=== PATIENT | female | born 1990 | race Caucasian/White ===

== ENCOUNTER 2023-05-18 13:07 | Outpatient (CLI) | payer OTHER ==
--- NOTE | 2023-05-18 13:48 | Sleep Patient Instructions ---
Sleep Center Visit Summary - Patient Visit Information Reason for Visit: Initial consult for evaluation of sleep disordered breathing and other sleep issues. - Patient Instructions Instructions Attached: Sleep Study Home Monitor Additional Instructions: You will be completing a sleep study, either an in-lab polysomnography (PSG) or home sleep study (HST). You will follow-up in the sleep care office after the sleep study is completed to hear the results and talk about therapy, if needed. You will be called by our office staff to schedule this appointment, but you may contact us with any questions. - Clinic Information Contact: [facility] [address] [place] [address] [email or web address] T: [phone]
--- NOTE | 2023-05-18 13:51 | SLEEP CARE CONSULTATION ---
Information from patient questionnaire entered by Srikanth Carr. I have reviewed and concur with the information entered by Srikanth Carr. This document represents the service I personally performed and the decisions made by me, Nikky Merida ARNP. History of Present Illness Service Date and Time: 05/18/2023 1307 Reason for Visit: New patient Chief Complaint: reports: Unrefreshed sleep, Snoring, Observed pauses in breathing, Frequent awakenings at night Date of Onset: 12+MONTHS Usual bedtime: 10PM-12AM Time it takes to fall asleep: 10MIN-2HRS (mostly about 30 mins) Snores at night: Yes Observed to quit breathing while asleep: Yes Sleeps alone due to snoring: Yes Number of times waking at night: 2-6 Reasons for waking at night: reports: Other (UNKNOWN). denies: Choking, Snoring, Gasping for air Toss, Turn, or Twitch while sleeping: Yes Recalls having dreams: Yes Usually gets out of bed at: 6-9AM Feels refreshed in the morning: No Morning headache: No Sleepy or fatigued during the day: Yes Ever fallen asleep while driving: No Takes day naps: Yes (sometimes, 2 per week; 1-2 hours) Dreams during day naps: No Prior sleep studies: No Additional HPI information: I had the pleasure of seeing MACI FUNG today regarding the possibility of her having a sleep disorder. Her current complaints are frequent night awakenings, observed pauses in breathing, snoring and unrefreshed sleep. She states had two times to the ED last summer with diagnoses of CHF and then blood clots in legs and lung. She states she can only tolerate about 3 hours in bed before she has to go sleep in a recliner to be able to rest better. She does not wake up feeling refreshed. She She has gained about 100 pounds in last 5 years and states she has always been overweight. She is working with a weight loss center and consulting about possible bariatic surgery. - Parasomnia Symptoms Ever been unable to move upon waking from sleep: No Walks in sleep: No Talks in sleep: No Ever acted out dreams in sleep: No Ever felt weak in the knees when startled or emotional: No Bothered by creepy, crawly, restless sensations in legs: No Problems with memory or concentration: No Subjective Initial [place] Sleepiness Scale score: 17 (05/18/23) Past Medical History Past Medical History: reports: Hypertension, Congestive Heart Failure (may have been acute), Diabetes (pre-), Insulin resistance (PCOS), Anxiety, Depression, Other (PE, blood clots in legs ) Social History The patient's occupation is a [employer]. Patient is Single and lives in . Have you smoked in the past 12 months: No Alcohol use: Yes Alcohol amount and frequency: 1-2 DRINKS EVERY COUPLE MONTHS Caffeine use: Yes Caffeine amount and frequency: 2+ SODAS DAILY Family History Family history of sleep disordered breathing: Yes Family Hx Sleep Apnea: Mother: Snoring, Father: Snoring, Sibling: Sleep apnea - Untreated Allergies and Home Medications Known drug allergies: No Drug allergies reviewed: Yes Home medication list reviewed: Yes Allergy and home medication list: Medications: Metroprolol 25 mg, bid Spironolactone 25 mg Furosemide 40 mg, prn Eliquis 5 mg x 2 times a day Fluoxetine 20 mg Lisinopril 20 mg Metformin 500 mg 2 daily Review of Systems Weight gain over past 5 years: 100+ Cardiovascular: reports: high blood pressure, leg or foot swelling, have to sleep sitting up Respiratory: reports: other (PE) Gastrointestinal: denies: heartburn Neurological: denies: headaches Psychiatric: reports: anxiety, depression Ear/Nose/Throat: reports: wisdom teeth removed. denies: tonsillectomy Endocrine: denies: thyroid disease Immunologic: denies: allergies to food or environment Physical Exam Vital signs obtained and entered by: SRIKANTH Fernandez MA Blood Pressure: 132/80 (LEFT ) Cuff size: wrist Heart Rate: 75 O2 Saturation: 96 Height: 5 ft 3 in Weight: 473 lb Body Mass Index: 83.7 BMI Classification: Morbidly Obese Neck circumference: 20 Mouth and throat: narrow oropharynx Uvula visualization: 25% Mallampati Class III Tongue: enlarged in size with teeth [place] on lateral edges Tonsils: 1+ Neck: normal w/o lymphadenopathy or thyromegaly Heart: regular rate and rhythm Lungs: clear bilaterally Impression and Plan 1. Suspected Obstructive Sleep Apnea-Hypopnea Syndrome, as suggested by a history of loud and irregular snoring, observed cessation of breath while asleep, frequent awakening during the night, unrefreshed sleep, and excessive daytime sleepiness. Narrow oropharynx and obesity are common predisposing factors for obstructive sleep apnea-hypopnea syndrome. I recommend proceeding to polysomnography to confirm the diagnosis and to assess severity. If the patient has significant sleep disordered breathing, a manual CPAP titration study will also be performed to find the optimal treatment pressure. I informed the patient of what the sleep studies involve and after some discussion, obtained agreement to proceed. The pathophysiology of obstructive sleep apnea-hypopnea syndrome was discussed with the patient and health risks of cardiovascular and cerebrovascular disease if not treated. Risks of drowsy driving discussed in detail and patient advised to avoid long distance driving and to pulling unit floorhand at the first sign of drowsiness. Patient agreed to plan. * Schedule polysomnography +- manual CPAP titration study and return in 1-2 weeks after the study to discuss result and initiate therapy. * Avoid long distance driving or driving when feeling sleepy. * Avoid alcohol, sedative and muscle relaxant around bedtime. * Attempt to lose weight. * Review instructions provided by trained office staff on how to prepare for the sleep study. * Return for follow-up after sleep study completed. Counseling Topics: Weight loss health impact Visit Type: In Office Time Spent with Patient (minutes): 31 Provider Statement: I spent 100% of the Face to Face Visit with the patient with greater than 50% spent counseling the patient and coordination of care.
[2023-05-18 13:53] VITALS: BP 132/80
== END 2023-05-18 13:08 | disposition home or self-care (01) ==
LOC: SC 13:07
PROVIDERS: ATTEND Nurse Practitioner Family
DX: G47.10 Hypersomnia, unspecified (principal); G47.8 Other sleep disorders; R06.81 Apnea, not elsewhere classified; R06.83 Snoring; I10 Essential (primary) hypertension; Z79.01 Long term (current) use of anticoagulants; E66.01 Morbid (severe) obesity due to excess calories; Z68.45 Body mass index [BMI] 70 or greater, adult
CPT/HCPCS: 99203; 99212

== ENCOUNTER 2023-07-14 12:16 | Outpatient (CLI) | payer OTHER | END 2023-07-14 12:17 | disposition home or self-care (01) | LOC: SC 12:16 | PROVIDERS: ATTEND Nurse Practitioner Family | DX: G47.33 Obstructive sleep apnea (adult) (pediatric) (principal); R09.02 Hypoxemia; Z68.45 Body mass index [BMI] 70 or greater, adult | CPT/HCPCS: 95806 ==

== ENCOUNTER 2023-08-11 12:10 | Outpatient (CLI) | payer OTHER ==
--- NOTE | 2023-08-11 12:06 | SLEEP CARE CONSULTATION ---
Information from patient questionnaire entered by Mary Jane Carr. I have reviewed and concur with the information entered by Mary Jane Carr. This document represents the service I personally performed and the decisions made by me, Nikky Merida ARNP. History of Present Illness Service Date and Time: 08/11/2023 1140 Initial [place] Sleepiness Scale score: 17 (05/18/23) Current [place] Sleepiness Scale score: 9 (08/11/23) Additional HPI information: MACI FUNG returns via video telehealth visit for follow up and results of the recently performed home sleep study. Her sleep study showed very severe obstructive sleep apnea with an average AHI of 62.5 and chad oxygen saturation of 79%. I explained the pathophysiology behind obstructive sleep apnea. We then spent quite a bit of time discussing different treatment options. For mild obstructive sleep apnea, surgery and oral appliance are alternatives to nasal CPAP therapy but in moderate or severe cases, nasal CPAP is the most effective and reliable treatment. I reviewed the impact of weight changes on sleep apnea and strongly recommended losing weight. After some discussion, the patient opted to go with the nasal CPAP therapy. Nasal autoCPAP set at 5-15 cmH20 will be ordered with rationale explained. A manual titration study will be ordered if unable to find optimal pressure with office adjustments. I explained how CPAP machine works and what to expect when using the machine. Using CPAP every night in order to get used to it was emphasized. Patient advised to put CPAP mask on before getting into bed so as not to fall asleep without CPAP. To assist acclimation to CPAP use, it could also be used for a short time during day while reading or watching TV. The patient was instructed to call the CPAP supplier to discuss any mechanical problem that may occur. If the mask given is uncomfortable or is difficult to keep on through the night even with adjustment, contact the CPAP supplier as many will replace with another mask style if notified before 30 days. If snoring or perceives is not getting enough air or too much air from the machine, notify this office. Patient does not drink alcohol. Patient was cautioned about risks of drowsy driving until sleepiness symptoms resolve. Patient denies drowsy driving. Sleep Study - Results Type of Sleep Study: Home sleep study (COMPLETED ON 07/14/23) Prior sleep studies: No Polysomnography/Home Sleep Study results: Physician Impression: The quality of the study is good. The length of the study is adequate (> 240 minutes). Please also see the tabulated and graphic data. 1. Obstructive Sleep Apnea-Hypopnea (ICD-10 G47.33), very severe, with an AHI of 62.5/hr and chad SaO2 of 79%. During the study, the patient had 25 apneas (25 obstructive, 0 central, 0 mixed) and 442 hypopneas. The longest episode lasted 68.5 seconds. The respiratory events occurred slightly more frequently during supine sleep (supine AHI was 67.3 and non-supine, 43.00). 2. Hypoxemia (ICD-10 R09.02), moderate, with the lowest oxygen saturation of 79 % and 57.2 minutes with SaO2 under 90%. Baseline oxygen saturation was normal (Average oxygen saturation was 93%). Allergies and Home Medications Known drug allergies: No Drug allergies reviewed: Yes Home medication list reviewed: Yes Allergy and home medication list: Allergies No Known Drug Allergies Allergy (Verified 08/10/23 13:44) Home Medications Medication Instructions Recorded Confirmed Last Taken Type Apixaban [Eliquis] See Rx Instructions .ROUTE .COMPLEX 05/18/23 08/11/23 Unknown History Fluoxetine HCl [Prozac] See Rx Instructions .ROUTE .COMPLEX 05/18/23 08/11/23 Unknown History Furosemide [Lasix] See Rx Instructions .ROUTE .COMPLEX 05/18/23 08/11/23 Unknown History Lisinopril [Zestril] See Rx Instructions .ROUTE .COMPLEX 05/18/23 08/11/23 Unknown History Metformin HCl [Metformin ER See Rx Instructions .ROUTE .COMPLEX 05/18/23 08/11/23 Unknown History Gastric] Metoprolol Succinate [Toprol Xl] See Rx Instructions .ROUTE .COMPLEX 05/18/23 08/11/23 Unknown History Spironolactone [Aldactone] See Rx Instructions .ROUTE .COMPLEX 05/18/23 08/11/23 Unknown History Semaglutide [Ozempic] See Rx Instructions .ROUTE .COMPLEX 08/11/23 08/11/23 Unknown History Review of Systems Review of systems same as previous: Yes (N/A) Physical Exam Vital signs obtained and entered by: MARY JANE Fernandez MA Blood Pressure: 135/80 (PER PT) Height: 5 ft 2.5 in (PER PT) Weight: 457 lb (PER PT) Body Mass Index: 82.2 BMI Classification: Morbidly Obese Impression and Plan 1. Obstructive Sleep Apnea-Hypopnea Syndrome, very severe, with lowest oxygen saturation of 79%. Obviously this is the cause of the patients symptoms of unrefreshed sleep, and excessive daytime sleepiness. Positive pressure therapy could benefit hypertension, CHF, prediabetes, insulin resistance (PCOS), anxiety and depression. As mentioned above, the patient will be started on nasal autoCPAP therapy with pressure set at 5-15 cmH2O. A manual titration study will be completed if unable to find optimal treatment pressure with office adjust ments. Compliance guidelines also reviewed. A copy of compliance guidelines will be given for reference at check out. Because the apnea is more severe supine, I instructed to avoid sleeping supine using pillow positioning until able to start CPAP use. 2. Hypoxemia, moderate, with a chad oxygen saturation of 79% and 57.2 minutes spent under 90%. Her baseline oxygen saturation was normal with an average oxygen saturation of 93%. 3. Obesity, Morbid. Currently patients BMI is 82.2. Obesity increases the risk of apnea, CPAP pressure requirements and overall health risks especially cardiovascular and diabetes. Thus patient is advised to lose weight. * Nasal auto CPAP therapy, pressure at 5-15 cm H2O. * Attempt to lose weight. * Avoid alcohol consumption near bedtime. * Avoid supine sleep until using CPAP. * The patient is again cautioned about driving until sleepiness completely resolves. * Return one month after CPAP obtained. I will assess response to therapy and compliance at that time. Counseling Topics: Weight loss health impact Visit Type: Telehealth Video Video Type: [place] Patient Location: Home Location of Provider: Office Patient agrees and consents to this telehealth visit type: Yes Patient agrees to have their insurance billed: Yes Time Spent with Patient (minutes): 23 Provider Statement: I spent 100% of the Telehealth Video Call with the patient with greater than 50% spent counseling the patient and coordination of care.
[2023-08-11 12:26] VITALS: BP 135/80
== END 2023-08-11 12:11 | disposition home or self-care (01) ==
LOC: SC 12:10
PROVIDERS: ATTEND Nurse Practitioner Family
DX: G47.33 Obstructive sleep apnea (adult) (pediatric) (principal); R09.02 Hypoxemia; E66.01 Morbid (severe) obesity due to excess calories; Z68.45 Body mass index [BMI] 70 or greater, adult

== ENCOUNTER 2024-06-09 11:27 | Outpatient (CLI) | payer OTHER ==
--- NOTE | 2024-06-09 11:55 | Sleep Patient Instructions ---
Sleep Center Visit Summary - Patient Visit Information Reason for Visit: 10 month follow up - 1st compliance - Patient Instructions Additional Instructions: You were here for follow up of CPAP therapy. You will be continued on CPAP therapy with pressure at 5-9 cmH2O. Please let us know if the pressure change is uncomfortable and we can make further adjustments of the pressure. A supply prescription will be updated and sent to your new DME supplier. I have added a mask refitting to try a nasal mask. You should follow up with sleep care in 12 months. You may contact us sooner for any questions or concerns. - Clinic Information Contact: [facility] [address] [place] [address] [email or web address] T: [phone]
--- NOTE | 2024-06-09 12:01 | SLEEP CARE CONSULTATION ---
Information from patient questionnaire entered by Mary Jane Carr. I have reviewed and concur with the information entered by Mary Jane Carr. This document represents the service I personally performed and the decisions made by , Nikky Merida ARNP. History of Present Illness Service Date and Time: 06/09/2024 112 Previous diagnosis: Very Severe, Obstructive Sleep Apnea-Hypopnea Syndrome AHI: 62.5 (07/14/23) Reason for follow up: first compliance, other (10 MONTH F/U ) Equipment type: CPAP (RESMED AIRSENSE 10 S/U 08/20/23) Equipment obtained from: Other ([facility]; has had insurance change and needs new DME) Mask style: Full face Mask brand: [employer]med (AirFit [id number]) Backup mask available: Yes Last cushion change: 1 month Prior sleep studies: No Type of Sleep Study: Home sleep study (COMPLETED ON 07/14/23) HPI additional information: MACI FUNG was diagnosed to have very severe, AHI 62.5, obstructive sleep apnea-hypopnea syndrome and returned today for CPAP therapy first compliance 10 month follow-up. Sleep Study - Results Type of Sleep Study: Home sleep study (COMPLETED ON 07/14/23) Prior sleep studies: No CPAP Compliance Data - Data Reviewed with Patient Average duration of nightly device use: 7 hours 8 minutes Compliance rate %: 82 (03/11/2024-06/08/2024; 80/90 days used) Current pressure setting (cmH2O): 5-15 (median 5.6, avg 7.6, max 9.1) Average residual AHI: 0.2 Central apnea: 0 Obstructive apnea: 0.1 Hypopnea: 0.1 Average large leak: 4.2 L/min Subjective Missed days of use due to: reports: illness Patient concerns: reports: air blowing in eyes (sometimes). denies: aerophagia, mask discomfort, mask leak noise, condensation in mask/hose, nasal congestion, dry mouth, nose, throat, epistaxis Observed to snore while using device: No Current pressure setting perceived as: comfortable On therapy, patient: reports: sleeping better, awakening more refreshed, being more awake and alert during the day, more rested overall. denies: drowsiness while driving Initial [place] Sleepiness Scale score: 17 (05/18/23) Current [place] Sleepiness Scale score: 5 Allergies and Home Medications Known drug allergies: No Drug allergies reviewed: Yes Home medication list reviewed: Yes (Semaglutide) Allergy and home medication list: Allergies No Known Drug Allergies Allergy (Verified 06/07/24 09:51) Home Medications Medication Instructions Recorded Confirmed Last Taken Type Apixaban [Eliquis] See Rx Instructions .ROUTE .COMPLEX 05/18/23 06/09/24 Unknown History Fluoxetine HCl [Prozac] See Rx Instructions .ROUTE .COMPLEX 05/18/23 06/09/24 Unknown History Furosemide [Lasix] See Rx Instructions .ROUTE .COMPLEX 05/18/23 06/09/24 Unknown History Lisinopril [Zestril] See Rx Instructions .ROUTE .COMPLEX 05/18/23 06/09/24 Unknown History Metformin HCl [Metformin ER See Rx Instructions .ROUTE .COMPLEX 05/18/23 06/09/24 Unknown History Gastric] Metoprolol Succinate [Toprol Xl] See Rx Instructions .ROUTE .COMPLEX 05/18/23 06/09/24 Unknown History Spironolactone [Aldactone] See Rx Instructions .ROUTE .COMPLEX 05/18/23 06/09/24 Unknown History Semaglutide [Ozempic] See Rx Instructions .ROUTE .COMPLEX 08/11/23 06/09/24 Unknown History Review of Systems Review of systems same as previous: Yes (no changes) Physical Exam Vital signs obtained and entered by: NIKKY NIXON Blood Pressure: 118/78 Cuff size: wrist (right arm) Heart Rate: 67 O2 Saturation: 99 Height: 5 ft 2.5 in (PER PT) Weight: 414 lb 6.4 oz Weight change since last visit: 43 lb loss Body Mass Index: 74.5 BMI Classification: Morbidly Obese Impression and Plan 1. Obstructive Sleep Apnea-Hypopnea Syndrome, very severe, with good treatment compliance and good apnea control. On CPAP therapy, the patient has better sleep quality and is more rested overall. Her insurance has changed and she needs a new DME supplier. She bought her machine from [employer]. I will have my economic development coordinator inform of DME options. She would also like to try a nasal cushion or pillows mask, I will add this to he prescription. A [facility] prescription will then be made. Patient advised to contact this office if further supply problems. She has significant improvement of her sleep apnea and is satisfied with current CPAP therapy. The patients pressure will be changed to autoCPAP 5-9 cmH20 to reflect pressure being used. Patient advised to contact me if pressure change is uncomfortable so that it can be adjusted. Goals for apnea control discussed. Patient's apnea severity and rationale for treatment to reduce apnea, improve sleep quality and reduce cardiovascular and cerebrovascular events was reviewed. I also reviewed the benefit of consistent device use of CPAP for hypertension, cardiac disease (CHF), pre-diabetes, depression/anxiety, insulin resistance (PCOS). 2. Obesity, unspecified. Currently patients BMI is 74.5. She has lost weight. She is working with a weight loss clinic and taking Semiglutide. Obesity increases the risk of apnea, CPAP pressure requirements and overall health risks especially cardiovascular and diabetes. Thus, patient is advised to continue to try to lose weight. * Change auto CPAP pressure to 5-9 cmH2O * Transfer DME * Mask refitting for nasal or nasal pillows mask * Update supply prescription * Notify me if snoring with mask or feeling that the pressure is too much or too little * Attempt to lose weight * Call this office if any problems using CPAP * Return for follow up in 12 months, or sooner if concerns arise Counseling Topics: Spare mask, Weight loss health impact Prescriptions: Device supplies (with DME Transfer and mask refitting) Follow up with Sleep Care in: 1 year Visit Type: In Office Time Spent with Patient (minutes): 25 Provider Statement: I spent 100% of the Face to Face Visit with the patient with greater than 50% spent counseling the patient and coordination of care.
[2024-06-09 12:27] VITALS: BP 118/78; O2SAT 99
== END 2024-06-09 11:28 | disposition home or self-care (01) ==
LOC: SC 11:27
PROVIDERS: ATTEND Nurse Practitioner Family
DX: G47.33 Obstructive sleep apnea (adult) (pediatric) (principal); E66.01 Morbid (severe) obesity due to excess calories; Z68.45 Body mass index [BMI] 70 or greater, adult
CPT/HCPCS: 99212; 99213